=== PATIENT | female | born 1980 | race Caucasian/White ===

== ENCOUNTER 2019-11-21 10:16 | Emergency (ER) | payer OTHER ==
[~2019-11-21] VITALS: Ht 160 cm; Wt 71.7 kg
[2019-11-21 10:23] VITALS: Ht 160 cm; Wt 71.7 kg
[2019-11-21 12:22] VITALS: BP 110/65
== END 2019-11-21 12:22 | disposition home or self-care (01) ==
LOC: ED 10:16
DX: G44.209 Tension-type headache, unspecified, not intractable (principal); Z98.890 Other specified postprocedural states
CPT/HCPCS: J1885